=== PATIENT | female | born 2005 | race African-American/Black ===

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

== ENCOUNTER → 2025-06-07 | Outpatient (CLI) | payer MEDICAID, SELFPAY ==
[2025-06-07 18:51] LABS: CRP < 3.00 mg/L (0.0-3.0)
== END | disposition home or self-care (01) ==
LOC: MTLAB 14:49
PROVIDERS: PCP Pediatrics; Referring Provider Family Medicine; Visit Provider Family Medicine
DX: M25.50 Pain in unspecified joint (principal)
CPT/HCPCS: 36415; 85652; 86140; 86200; 86431

== ENCOUNTER → 2025-07-28 | Outpatient (CLI) | payer MEDICAID, SELFPAY ==
--- NOTE | 2025-07-28 15:06 | RAD_ITS ---
PROCEDURE: WRIST MIN 3 VIEWS 07/28/2025 REASON FOR EXAM: PAIN TECHNIQUE: 6 view bilateral wrist series Laterality: Bilateral COMPARISON: None. RAD/Wrist min 3 Views IMPRESSION: No significant arthritic process or joint narrowing is noted. No significant degree of ulnar variance is seen. Satisfactory carpal alignment is seen bilaterally. No evidence of inflammatory arthritis. No soft tissue mass is radiographically evident. No fracture or dislocation is seen on either side. Reading Location: [place] [id number]
--- NOTE | 2025-07-28 15:06 | RAD_ITS ---
PROCEDURE: WRIST MIN 3 VIEWS 07/28/2025 REASON FOR EXAM: PAIN TECHNIQUE: 6 view bilateral wrist series Laterality: Bilateral COMPARISON: None. RAD/Wrist min 3 Views IMPRESSION: No significant arthritic process or joint narrowing is noted. No significant degree of ulnar variance is seen. Satisfactory carpal alignment is seen bilaterally. No evidence of inflammatory arthritis. No soft tissue mass is radiographically evident. No fracture or dislocation is seen on either side. Reading Location: [place] [address]
== END | disposition home or self-care (01) ==
PROVIDERS: PCP Family Medicine; Referring Provider Surgery Plastic and Reconstructive Surgery; Visit Provider Surgery Plastic and Reconstructive Surgery
DX: M67.431 Ganglion, right wrist (principal); M67.432 Ganglion, left wrist; R52 Pain, unspecified
CPT/HCPCS: 73110

== ENCOUNTER → 2025-08-24 | Outpatient (CLI) | payer MEDICAID, SELFPAY ==
--- NOTE | 2025-08-24 11:34 | US_ITS ---
PROCEDURE: EXT NON VASC LIMITED/SOFT TISS 08/24/2025 REASON FOR EXAM: CYST RIGHT FOREARM TECHNIQUE: Procedure Code: [id number] Modality: US Procedure: EXT NON VASC LIMITED/SOFT TISS COMPARISON: None US/Ext Non Vasc Limited/Soft Tiss IMPRESSION: No discrete mass or fluid collection noted within the right forearm. No cyst n oted. Reading Location: [id number]
--- NOTE | 2025-08-24 11:34 | US_ITS ---
PROCEDURE: EXT NON VASC LIMITED/SOFT TISS 08/24/2025 REASON FOR EXAM: CYST RIGHT FOREARM TECHNIQUE: Procedure Code: [id number] Modality: US Procedure: EXT NON VASC LIMITED/SOFT TISS COMPARISON: None US/Ext Non Vasc Limited/Soft Tiss IMPRESSION: No discrete mass or fluid collection noted within the right forearm. No cyst n oted. Reading Location: [id number]
--- NOTE | 2025-08-24 11:50 | US_ITS ---
PROCEDURE: EXT NON VASC LIMITED/SOFT TISS 08/24/2025 REASON FOR EXAM: LEFT FOREARM CYST TECHNIQUE: Procedure Code: [id number] Modality: US Procedure: EXT NON VASC LIMITED/SOFT TISS COMPARISON: None US/Ext Non Vasc Limited/Soft Tiss IMPRESSION: No discrete mass or fluid collection noted within the left forearm. No cyst no obed. Reading Location: [id number]
--- NOTE | 2025-08-24 11:50 | US_ITS ---
PROCEDURE: EXT NON VASC LIMITED/SOFT TISS 08/24/2025 REASON FOR EXAM: LEFT FOREARM CYST TECHNIQUE: Procedure Code: [id number] Modality: US Procedure: EXT NON VASC LIMITED/SOFT TISS COMPARISON: None US/Ext Non Vasc Limited/Soft Tiss IMPRESSION: No discrete mass or fluid collection noted within the left forearm. No cyst no obed. Reading Location: [id number]
== END | disposition home or self-care (01) ==
LOC: US 11:31
PROVIDERS: PCP Family Medicine; Referring Provider Surgery Plastic and Reconstructive Surgery; Visit Provider Surgery Plastic and Reconstructive Surgery
DX: M67.431 Ganglion, right wrist (principal); M67.432 Ganglion, left wrist
CPT/HCPCS: 76882